=== PATIENT | female | born 1950 | race Caucasian/White ===

== ENCOUNTER → 2016-05-31 | Outpatient (REF) | payer MEDICARE, MEDICAID ==
[2016-05-31 18:06] LABS: INR 2.43
== END ==
LOC: M LAB REF 16:59
PROVIDERS: ATTEND Internal Medicine Nephrology
DX: Z48.22 Encounter for aftercare following kidney transplant (principal); I48.91 Unspecified atrial fibrillation

== ENCOUNTER → 2016-09-05 | Outpatient (REF) | payer MEDICARE, MEDICAID ==
[2016-09-05 13:35] LABS: INR 2.46
== END ==
LOC: M LAB REF 13:00
PROVIDERS: ATTEND Internal Medicine Nephrology
DX: Z48.22 Encounter for aftercare following kidney transplant (principal); Z94.0 Kidney transplant status; I48.91 Unspecified atrial fibrillation

== ENCOUNTER → 2016-12-06 | Outpatient (REF) | payer MEDICARE, MEDICAID | LOC: M LAB REF 14:25 | PROVIDERS: ATTEND Internal Medicine Nephrology | DX: Z48.22 Encounter for aftercare following kidney transplant (principal); Z94.0 Kidney transplant status ==

== ENCOUNTER → 2017-06-08 | Outpatient (REF) | payer MEDICARE, MEDICAID ==
[2017-06-11 10:12] LABS: SIROLIMUS (RAPAMUNE) LABCORP 6.5 ng/mL (3.0-20.0)
== END ==
LOC: M LAB REF 17:09
DX: Z48.22 Encounter for aftercare following kidney transplant (principal); Z94.0 Kidney transplant status
CPT/HCPCS: 80195

== ENCOUNTER → 2017-10-05 | Outpatient (REF) | payer MEDICARE, MEDICAID ==
[2017-10-08 09:18] LABS: SIROLIMUS (RAPAMUNE) LABCORP 5.9 ng/mL (3.0-20.0)
== END ==
LOC: M LAB REF 13:04
DX: Z48.22 Encounter for aftercare following kidney transplant (principal); Z94.0 Kidney transplant status
CPT/HCPCS: 80195

== ENCOUNTER → 2018-01-12 | Outpatient (REF) | payer MEDICARE, MEDICAID ==
[2018-01-15 14:16] LABS: SIROLIMUS (RAPAMUNE) LABCORP 5.6 ng/mL (3.0-20.0)
== END ==
LOC: M LAB REF 13:06
DX: Z48.22 Encounter for aftercare following kidney transplant (principal); Z94.0 Kidney transplant status
CPT/HCPCS: 80195

== ENCOUNTER → 2018-05-03 | Outpatient (REF) | payer MEDICARE, MEDICAID | LOC: M LAB REF 13:37 | PROVIDERS: ATTEND Internal Medicine Nephrology | DX: Z48.22 Encounter for aftercare following kidney transplant (principal); Z94.0 Kidney transplant status; I48.91 Unspecified atrial fibrillation ==

== ENCOUNTER → 2018-05-03 | Outpatient (REF) | payer MEDICARE, MEDICAID ==
[2018-05-03 14:18] LABS: INR 2.05; PROTHROMBIN TIME 23.5 SECONDS (12.1-14.4)
== END ==
LOC: M LAB REF 13:39
PROVIDERS: ATTEND Physician Assistant
DX: I48.91 Unspecified atrial fibrillation (principal)

== ENCOUNTER → 2018-08-09 | Outpatient (REF) | payer MEDICARE, MEDICAID | LOC: M LAB REF 13:14 | PROVIDERS: ATTEND Internal Medicine Nephrology | DX: Z48.22 Encounter for aftercare following kidney transplant (principal); Z94.0 Kidney transplant status ==

== ENCOUNTER → 2018-12-07 | Outpatient (REF) | payer MEDICARE, MEDICAID | LOC: M LAB REF 13:26 | PROVIDERS: ATTEND Internal Medicine Nephrology | DX: Z48.22 Encounter for aftercare following kidney transplant (principal); Z94.0 Kidney transplant status ==

== ENCOUNTER → 2019-03-21 | Outpatient (REF) | payer MEDICARE, MEDICAID | LOC: M LAB REF 13:51 | PROVIDERS: ATTEND Internal Medicine Nephrology | DX: Z48.22 Encounter for aftercare following kidney transplant (principal); Z94.0 Kidney transplant status ==

== ENCOUNTER → 2019-07-19 | Outpatient (REF) | payer MEDICARE, MEDICAID ==
[2019-07-19 14:10] LABS: INR 3.28; PROTHROMBIN TIME 33.3 SECONDS (11.8-14.0)
== END ==
LOC: M LAB REF 13:03
PROVIDERS: ATTEND Internal Medicine Cardiovascular Disease
DX: I48.91 Unspecified atrial fibrillation (principal)

== ENCOUNTER → 2019-10-22 | Outpatient (REF) | payer MEDICARE, MEDICAID | LOC: M LAB REF 17:18 | PROVIDERS: ATTEND Internal Medicine Nephrology | DX: Z48.22 Encounter for aftercare following kidney transplant (principal); Z94.0 Kidney transplant status ==

== ENCOUNTER → 2019-10-22 | Outpatient (REF) | payer MEDICARE, MEDICAID ==
[2019-10-22 18:43] LABS: BASO % 0.3 % (0.0-1.0); EOS # 0.1 10^3/uL (0.0-0.5); EOS % 1.9 % (0.0-3.0); HEMATOCRIT 43.7 % (36.0-47.0); HEMOGLOBIN 13.9 g/dl (12.0-15.5); LYMPH # 0.9 10^3/uL (1.5-5.0); LYMPH % 16.1 % (24.0-44.0); MEAN CORPUSCULAR HEMOGLOBIN 28.6 pg (27.0-33.0); MEAN CORPUSCULAR HGB CONC 31.8 g/dl (32.0-36.5); MEAN CORPUSCULAR VOLUME 89.9 fl (80.0-96.0); MONO # 0.7 10^3/uL (0.0-0.8); NEUTROPHILS % 69.2 % (36.0-66.0); PLATELET COUNT, AUTOMATED 235 10^3/uL (150-450); RED BLOOD COUNT 4.86 10^6/uL (4.00-5.40); WHITE BLOOD COUNT 5.8 10^3/uL (4.0-10.0)
[2019-10-22 18:48] LABS: APPEARANCE, URINE CLEAR (CLEAR); BACTERIA, URINE AUTO 1+ (NEGATIVE); BILIRUBIN, URINE AUTO NEGATIVE (NEGATIVE); BLOOD, URINE BLOOD NEGATIVE (NEGATIVE); COLOR, URINE YELLOW (YELLOW); GLUCOSE, URINE (UA) AUTO NEGATIVE (NEGATIVE); KETONE, URINE AUTO NEGATIVE (NEGATIVE); LEUKOCYTE ESTERASE, URINE AUTO NEGATIVE (NEGATIVE); NITRITE, URINE AUTO NEGATIVE (NEGATIVE); PROTEIN, URINE AUTO NEGATIVE (NEGATIVE); RBC, URINE AUTO 0 /HPF (0-3); SPECIFIC GRAVITY URINE AUTO 1.005 (1.002-1.035); SQUAMOUS EPITHELIAL CELL UR AU 0 /HPF (0-6); UROBILINOGEN, URINE AUTO 0.2 mg/dL (0.0-2.0); WBC, URINE AUTO 0 /HPF (0-3)
[2019-10-22 19:14] LABS: CREATININE,RANDOM URINE 40.6 MG/DL; TOTAL PROTEIN,RANDOM URINE < 5.0 MG/DL (0.0-12.0)
[2019-10-22 19:16] LABS: ALBUMIN 3.9 GM/DL (3.2-5.2); BILIRUBIN,DIRECT 0.2 MG/DL (0.0-0.2); BILIRUBIN,TOTAL 0.6 MG/DL (0.2-1.0); CALCIUM LEVEL 9.4 MG/DL (8.8-10.2); CREATININE FOR GFR 1.04 MG/DL (0.55-1.30); GLOMERULAR FILTRATION RATE 56.1 (>45); PHOSPHORUS LEVEL 3.3 MG/DL (2.5-4.9); POTASSIUM SERUM 3.9 MEQ/L (3.5-5.1); TOTAL PROTEIN 6.8 GM/DL (6.4-8.2)
== END ==
LOC: M LAB REF 17:20
PROVIDERS: ATTEND Internal Medicine Nephrology
DX: N18.5 Chronic kidney disease, stage 5 (principal); D84.9 Immunodeficiency, unspecified; Z94.0 Kidney transplant status; Z79.899 Other long term (current) drug therapy; Z48.22 Encounter for aftercare following kidney transplant
CPT/HCPCS: 80069; 80076; 81001; 82570; 83735; 84156; 85025; 87086; G0463

== ENCOUNTER → 2020-01-23 | Outpatient (REF) | payer MEDICARE, MEDICAID | LOC: M LAB REF 17:02 | PROVIDERS: ATTEND Internal Medicine Nephrology | DX: Z48.22 Encounter for aftercare following kidney transplant (principal); Z94.0 Kidney transplant status ==

== ENCOUNTER → 2020-04-27 | Outpatient (REF) | payer MEDICARE, MEDICAID | LOC: M LAB REF 17:22 | PROVIDERS: ATTEND Internal Medicine Nephrology | DX: Z48.22 Encounter for aftercare following kidney transplant (principal); Z94.0 Kidney transplant status ==

== ENCOUNTER → 2020-07-28 | Outpatient (REF) | payer MEDICARE, MEDICAID | LOC: M LAB REF 16:49 | PROVIDERS: ATTEND Internal Medicine Nephrology | DX: Z48.22 Encounter for aftercare following kidney transplant (principal); Z94.0 Kidney transplant status ==

== ENCOUNTER → 2020-12-14 | Outpatient (REF) | payer MEDICARE, MEDICAID | LOC: M LAB REF 13:37 | PROVIDERS: ATTEND Internal Medicine Nephrology | DX: Z48.22 Encounter for aftercare following kidney transplant (principal); Z94.0 Kidney transplant status; E83.42 Hypomagnesemia ==

== ENCOUNTER → 2021-03-16 | Outpatient (REF) | payer MEDICARE, MEDICAID ==
[2021-03-16 13:51] LABS: INR 2.14; PROTHROMBIN TIME 24.3 SECONDS (12.7-14.5)
== END ==
LOC: M LAB REF 13:04
PROVIDERS: ATTEND Internal Medicine Nephrology
DX: I48.0 Paroxysmal atrial fibrillation (principal)

== ENCOUNTER → 2021-05-14 | Outpatient (REF) | payer MEDICARE, MEDICAID | LOC: M LAB REF 13:02 | PROVIDERS: ATTEND Internal Medicine Nephrology | DX: Z94.0 Kidney transplant status (principal) ==

== ENCOUNTER 2021-06-23 10:38 | Day surgery (SDC) | payer MEDICARE, MEDICAID ==
[~2021-06-23] VITALS: Ht 167.6 cm; Wt 66.6 kg
[2021-06-23] MEDS ORDERED: CYCL25CA23 PO (11:27)
[2021-06-23] MEDS ORDERED: POTA-136 PO (11:27)
[2021-06-23] MEDS ORDERED: ALEN70TA82 PO (11:27)
[2021-06-23] MEDS ORDERED: MYFO360T PO (11:27)
[2021-06-23] MEDS ORDERED: VITA200016 PO (11:27)
[2021-06-23] MEDS ORDERED: MAGN400T2 PO (11:27)
[2021-06-23] MEDS ORDERED: REST0.05 OU (11:27)
[2021-06-23] MEDS ORDERED: WARF-60 PO (11:27)
[2021-06-23] MEDS ORDERED: LISI10TA22 PO (11:27)
[2021-06-23] MEDS ORDERED: WARF-23 PO (11:27)
[2021-06-23] MEDS ORDERED: CALC500C15 PO (11:27)
[2021-06-23] MEDS ORDERED: FURO20TA2 PO (11:27)
[2021-06-23] MEDS ORDERED: VITA500T11 PO (11:27)
[2021-06-23] MEDS ORDERED: FLEC25TA PO (11:27)
[2021-06-23] MEDS ORDERED: FAMO20TA5 PO (11:27)
[2021-06-23] MEDS ORDERED: METO50TA7 PO (11:27)
[2021-06-23] MEDS ORDERED: PRED5TA PO (11:27)
[2021-06-23] MEDS ORDERED: propofoL 200 MG/20 ML VIAL As Ordered ONE ×2 (11:39→12:08)
[2021-06-23] MEDS ORDERED: LIDOCAINE 2% 100MG/5ML SDV (FOR ANES.) As Ordered ONE (11:41)
[2021-06-23 14:25] VITALS: BP 167/92
== END 2021-06-23 16:04 | disposition home or self-care (01) ==
LOC: M SDC 10:38
PROVIDERS: ATTEND Internal Medicine Cardiovascular Disease
DX: I49.3 Ventricular premature depolarization (principal); I44.2 Atrioventricular block, complete; I50.32 Chronic diastolic (congestive) heart failure; I34.0 Nonrheumatic mitral (valve) insufficiency; I11.0 Hypertensive heart disease with heart failure; I71.1 Thoracic aortic aneurysm, ruptured; I35.1 Nonrheumatic aortic (valve) insufficiency; N18.9 Chronic kidney disease, unspecified; Z79.01 Long term (current) use of anticoagulants; Z87.891 Personal history of nicotine dependence

== ENCOUNTER → 2021-10-13 | Outpatient (CLI) | payer MEDICARE, MEDICAID ==
[~2021-10-13] MED LIST: ALEN70TA82 PO; CALC500C15 PO; CYCL25CA23 PO; FAMO20TA5 PO; FLEC25TA PO; FURO20TA2 PO; LISI10TA22 PO; MAGN400T2 PO; METO50TA7 PO; MYFO360T PO; POTA-136 PO; PRED5TA PO; REST0.05 OU; VITA200016 PO; VITA500T11 PO; WARF-23 PO; WARF-60 PO
[2021-10-13 13:58] LABS: BASO % 0.3 % (0.0-1.0); EOS # 0.1 10^3/uL (0.0-0.5); EOS % 0.7 % (0.0-3.0); HEMATOCRIT 41.4 % (36.0-47.0); HEMOGLOBIN 13.6 g/dl (12.0-15.5); LYMPH # 0.7 10^3/uL (1.5-5.0); LYMPH % 7.8 % (24.0-44.0); MEAN CORPUSCULAR HEMOGLOBIN 29.6 pg (27.0-33.0); MEAN CORPUSCULAR HGB CONC 32.9 g/dl (32.0-36.5); MEAN CORPUSCULAR VOLUME 90.2 fl (80.0-96.0); MONO # 0.9 10^3/uL (0.0-0.8); MONO % 10.1 % (2.0-8.0); NEUTROPHILS # 6.9 10^3/uL (1.5-8.5); NEUTROPHILS % 80.6 % (36.0-66.0); PLATELET COUNT, AUTOMATED 261 10^3/uL (150-450); RED BLOOD COUNT 4.59 10^6/uL (4.00-5.40); WHITE BLOOD COUNT 8.6 10^3/uL (4.0-10.0)
[2021-10-13 14:26] LABS: ERYTHROCYTE SEDIMENTATION RATE 21 mm/hr (0-30)
[2021-10-13 14:31] LABS: ALBUMIN 3.6 GM/DL (3.2-5.2); ALT/SGPT 84 U/L (12-78); BILIRUBIN,TOTAL 0.7 MG/DL (0.2-1.0); BLOOD UREA NITROGEN 15 MG/DL (7-18); CALCIUM LEVEL 9.4 MG/DL (8.8-10.2); CARBON DIOXIDE LEVEL 25 MEQ/L (21-32); CHLORIDE LEVEL 97 MEQ/L (98-107); CREATININE FOR GFR 0.82 MG/DL (0.55-1.30); GLOMERULAR FILTRATION RATE > 60.0 (>39); GLUCOSE, FASTING 165 MG/DL (70-100); NT-PRO BNP 2051 PG/ML (<125); POTASSIUM SERUM 4.4 MEQ/L (3.5-5.1); SODIUM LEVEL 131 MEQ/L (136-145); TOTAL PROTEIN 7.1 GM/DL (6.4-8.2)
== END ==
LOC: M RAD 13:10
PROVIDERS: ATTEND Internal Medicine Cardiovascular Disease
DX: I50.32 Chronic diastolic (congestive) heart failure (principal)

== ENCOUNTER → 2021-11-10 | Outpatient (REF) | payer MEDICARE, MEDICAID | LOC: M LAB REF 16:42 | PROVIDERS: ATTEND Internal Medicine Nephrology | DX: Z48.22 Encounter for aftercare following kidney transplant (principal); Z94.0 Kidney transplant status ==

== ENCOUNTER → 2022-05-13 | Outpatient (REF) | payer MEDICARE, MEDICAID | LOC: M LAB REF 16:44 | PROVIDERS: ATTEND Internal Medicine Nephrology | DX: Z48.22 Encounter for aftercare following kidney transplant (principal); Z94.0 Kidney transplant status ==

== ENCOUNTER → 2022-05-17 | Outpatient (REF) | payer MEDICARE, MEDICAID | LOC: M SMT 12:52 | PROVIDERS: ATTEND Nurse Practitioner Women's Health | DX: N89.8 Other specified noninflammatory disorders of vagina (principal) ==

== ENCOUNTER → 2022-06-02 | Outpatient (REF) | payer MEDICARE, MEDICAID | LOC: M SFHCLERA 14:59 | PROVIDERS: ATTEND Physician Assistant | DX: R05.9 Cough, unspecified (principal) ==

== ENCOUNTER → 2022-09-13 | Outpatient (REF) | payer MEDICARE, MEDICAID | LOC: M LAB REF 16:50 | PROVIDERS: ATTEND Internal Medicine Nephrology | DX: Z48.22 Encounter for aftercare following kidney transplant (principal); Z94.0 Kidney transplant status ==

== ENCOUNTER → 2022-12-09 | Outpatient (REF) | payer MEDICARE, MEDICAID | LOC: M LAB REF 16:59 | PROVIDERS: ATTEND Internal Medicine Nephrology | DX: Z48.22 Encounter for aftercare following kidney transplant (principal); Z94.0 Kidney transplant status ==

== ENCOUNTER → 2023-03-14 | Outpatient (REF) | payer MEDICARE, MEDICAID ==
[2023-03-14 11:09] LABS: INR 2.74
== END ==
LOC: M LAB REF 10:42
PROVIDERS: ATTEND Physician Assistant
DX: I48.91 Unspecified atrial fibrillation (principal)

== ENCOUNTER → 2023-03-14 | Outpatient (REF) | payer MEDICARE, MEDICAID | LOC: M LAB REF 10:44 | PROVIDERS: ATTEND Internal Medicine Nephrology | DX: Z48.22 Encounter for aftercare following kidney transplant (principal); Z94.0 Kidney transplant status; I48.91 Unspecified atrial fibrillation ==

== ENCOUNTER → 2023-12-13 | Outpatient (CLI) | payer MEDICARE, MEDICAID ==
[2023-12-13 12:58] LABS: INR 2.32; PROTHROMBIN TIME 24.6 SECONDS (12.5-14.5)
== END ==
LOC: M PLALAB 11:06
PROVIDERS: ATTEND Physician Assistant
DX: I48.0 Paroxysmal atrial fibrillation (principal); Z79.01 Long term (current) use of anticoagulants

== ENCOUNTER → 2023-12-13 | Outpatient (CLI) | payer MEDICARE, MEDICAID ==
[2023-12-13 12:38] LABS: BASO % 0.3 % (0.0-1.0); EOS # 0.1 10^3/uL (0.0-0.5); EOS % 0.8 % (0.0-3.0); HEMATOCRIT 38.8 % (36.0-47.0); HEMOGLOBIN 12.4 g/dl (12.0-15.5); LYMPH # 1.1 10^3/uL (1.5-5.0); LYMPH % 18.8 % (24.0-44.0); MEAN CORPUSCULAR HEMOGLOBIN 28.1 pg (27.0-33.0); MEAN CORPUSCULAR VOLUME 87.8 fl (80.0-96.0); MONO # 0.8 10^3/uL (0.0-0.8); MONO % 13.2 % (2.0-8.0); NEUTROPHILS # 3.9 10^3/uL (1.5-8.5); NEUTROPHILS % 66.4 % (36.0-66.0); PLATELET COUNT, AUTOMATED 215 10^3/uL (150-450); RED BLOOD COUNT 4.42 10^6/uL (4.00-5.40); WHITE BLOOD COUNT 5.9 10^3/uL (4.0-10.0)
[2023-12-13 12:45] LABS: APPEARANCE, URINE CLEAR (CLEAR); BACTERIA, URINE AUTO NEGATIVE (NEGATIVE); BILIRUBIN, URINE AUTO NEGATIVE (NEGATIVE); BLOOD, URINE BLOOD NEGATIVE (NEGATIVE); COLOR, URINE YELLOW (YELLOW); GLUCOSE, URINE (UA) AUTO NEGATIVE (NEGATIVE); KETONE, URINE AUTO NEGATIVE (NEGATIVE); LEUKOCYTE ESTERASE, URINE AUTO NEGATIVE (NEGATIVE); MUCUS, URINE SMALL (NEGATIVE); NITRITE, URINE AUTO NEGATIVE (NEGATIVE); PROTEIN, URINE AUTO NEGATIVE (NEGATIVE); RBC, URINE AUTO 1 /HPF (0-3); SPECIFIC GRAVITY URINE AUTO 1.017 (1.002-1.035); SQUAMOUS EPITHELIAL CELL UR AU 0 /HPF (0-6); UROBILINOGEN, URINE AUTO 0.2 mg/dL (0.0-2.0); WBC, URINE AUTO 0 /HPF (0-3)
[2023-12-13 13:01] LABS: CREATININE,RANDOM URINE 111.8 MG/DL
[2023-12-13 13:04] LABS: ALBUMIN 3.5 G/DL (3.2-5.2); ALKALINE PHOSPHATASE 53 U/L (46-116); ALT/SGPT 20 U/L (7.0-40); AST/SGOT 20 U/L (<34); BILIRUBIN,TOTAL 0.7 MG/DL (0.3-1.2); BLOOD UREA NITROGEN 20 MG/DL (9-23); CALCIUM LEVEL 9.2 MG/DL (8.3-10.6); CARBON DIOXIDE LEVEL 29 MMOL/L (20-31); CHLORIDE LEVEL 104 MMOL/L (98-107); CHOLESTEROL LEVEL 230 MG/DL (<200); CHOLESTEROL RISK RATIO 3.16 (<5); CREATININE FOR GFR 0.86 MG/DL (0.55-1.30); GLOMERULAR FILTRATION RATE > 60.0 (>39); GLUCOSE, FASTING 101 MG/DL (74-106); HDL CHOLESTEROL 72.6 MG/DL (>40); LDL CHOLESTEROL 129.2 MG/DL (<100); MAGNESIUM LEVEL 1.8 MG/DL (1.8-2.4); NON-HDL-C 157.4 MG/DL; PHOSPHORUS LEVEL 3.2 MG/DL (2.4-5.1); POTASSIUM SERUM 3.8 MMOL/L (3.5-5.1); SODIUM LEVEL 136 MMOL/L (136-145); TOTAL PROTEIN 6.3 G/DL (5.7-8.2); TRIGLYCERIDES LEVEL 141 MG/DL (<150)
== END ==
LOC: M PLALAB 11:04
PROVIDERS: ATTEND Nurse Practitioner Family
DX: Z94.0 Kidney transplant status (principal); N18.5 Chronic kidney disease, stage 5; D84.9 Immunodeficiency, unspecified; I48.0 Paroxysmal atrial fibrillation; Z79.01 Long term (current) use of anticoagulants; Z79.899 Other long term (current) drug therapy

== ENCOUNTER → 2024-01-15 | Outpatient (CLI) | payer MEDICARE, MEDICAID | LOC: M PLAIMG 14:32 | PROVIDERS: ATTEND Internal Medicine Cardiovascular Disease | DX: I71.11 Aneurysm of the ascending aorta, ruptured (principal); I27.20 Pulmonary hypertension, unspecified; I08.3 Combined rheumatic disorders of mitral, aortic and tricuspid valves ==

== ENCOUNTER → 2024-03-11 | Outpatient (REF) | payer MEDICARE, MEDICAID ==
[2024-03-11 13:01] LABS: INR 3.16; PROTHROMBIN TIME 32.3 SECONDS (12.5-14.5)
== END ==
LOC: M LAB REF 12:15
PROVIDERS: ATTEND Physician Assistant
DX: I48.0 Paroxysmal atrial fibrillation (principal); Z79.01 Long term (current) use of anticoagulants

== ENCOUNTER → 2024-05-13 | Outpatient (CLI) | payer OTHER, MEDICAID | LOC: M RAD 11:23 | PROVIDERS: ATTEND Internal Medicine Cardiovascular Disease | DX: R06.00 Dyspnea, unspecified (principal) ==

== ENCOUNTER → 2024-07-05 | Outpatient (REF) | payer MEDICARE, MEDICAID | LOC: M LAB REF 17:02 | PROVIDERS: ATTEND Internal Medicine Nephrology | DX: Z48.22 Encounter for aftercare following kidney transplant (principal); Z94.0 Kidney transplant status ==

== ENCOUNTER → 2024-11-13 | Outpatient (CLI) | payer MEDICARE, MEDICAID ==
[~2024-11-13] MED LIST changes: +ISOVUE-370 76% 100 ML VIAL As Ordered ONE
== END ==
LOC: M RAD 12:55
PROVIDERS: ATTEND Surgery Vascular Surgery
DX: Z95.828 Presence of other vascular implants and grafts (principal); I51.7 Cardiomegaly; K80.20 Calculus of gallbladder without cholecystitis without obstruction; K75.3 Granulomatous hepatitis, not elsewhere classified; K57.90 Diverticulosis of intestine, part unspecified, without perforation or abscess without bleeding
CPT/HCPCS: 74174; Q9967

== ENCOUNTER → 2025-01-01 | Outpatient (REF) | payer MEDICARE, MEDICAID ==
[~2025-01-01] MED LIST changes: -ISOVUE-370 76% 100 ML VIAL As Ordered ONE
[2025-01-01 18:14] LABS: PLATELET COUNT, AUTOMATED 225 10^3/uL (150-450)
[2025-01-01 18:36] LABS: ESTIMATED AVERAGE GLUCOSE 108.0 MG/DL (60-110)
[2025-01-01 18:47] LABS: ALT/SGPT 16.0 U/L (7.0-40); AST/SGOT 23.0 U/L (<34); CALCIUM LEVEL 9.4 MG/DL (8.3-10.6); CARBON DIOXIDE LEVEL 28.0 MMOL/L (20-31); CHLORIDE LEVEL 101.0 MMOL/L (98-107); CHOLESTEROL LEVEL 178.0 MG/DL (<200); CHOLESTEROL RISK RATIO 2.3 (<5); CREATININE FOR GFR 0.86 MG/DL (0.55-1.30); GLOMERULAR FILTRATION RATE 71.3 (>39); LDL CHOLESTEROL 59.9 MG/DL (<100); MAGNESIUM LEVEL 2.0 MG/DL (1.8-2.4); NON-HDL-C 100.9 MG/DL; POTASSIUM SERUM 4.3 MMOL/L (3.5-5.1); SODIUM LEVEL 136.0 MMOL/L (136-145); TOTAL 25(OH) VITAMIN D 64.0 NG/ML (20.0-100.0); TRIGLYCERIDES LEVEL 205.0 MG/DL (<150)
[2025-01-01 18:48] LABS: FREE T4 1.39 NG/DL (0.89-1.76)
== END ==
LOC: M SFHCADAM 11:47
PROVIDERS: ATTEND Family Medicine
DX: N18.31 Chronic kidney disease, stage 3a (principal); M81.0 Age-related osteoporosis without current pathological fracture; E83.42 Hypomagnesemia; Z13.1 Encounter for screening for diabetes mellitus; I11.9 Hypertensive heart disease without heart failure; I48.11 Longstanding persistent atrial fibrillation

== ENCOUNTER → 2025-01-30 | Outpatient (REF) | payer MEDICARE, MEDICAID | LOC: M LAB REF 16:58 | PROVIDERS: ATTEND Internal Medicine Nephrology | DX: Z48.22 Encounter for aftercare following kidney transplant (principal); Z94.0 Kidney transplant status ==